=== PATIENT | female | born 1985 | race Caucasian/White ===

== ENCOUNTER 2022-02-06 07:41 | Day surgery (SDC) | payer BC ==
[2022-02-05 11:00] VITALS: BMI 32.6
[2022-02-06] MEDS ORDERED: EPINEPHrine 1 MG/ML AMP ONE (10:12)
[2022-02-06] MEDS ORDERED: Bupivacaine 0.25% HCL 30 ML VIAL ONE (10:12)
[2022-02-06] MEDS ORDERED: Midazolam HCl 2 mg/2 ml Vial ONE (10:29)
[2022-02-06] MEDS ORDERED: Lidocaine 2% 6 ML SYR ONE (10:29)
[2022-02-06] MEDS ORDERED: fentaNYL Citrate/PF 100 MCG/2 ML SYRINGE ONE (10:29)
[2022-02-06] MEDS ORDERED: cefOXitin 2 GM VIAL ONE (10:32)
[2022-02-06] MEDS ORDERED: PROPOFOL 200 MG/20 ML VIAL ONE (10:38)
[2022-02-06] MEDS ORDERED: Ondansetron PF 4 MG/2 ML Vial ONE (10:38)
[2022-02-06] MEDS ORDERED: Ketorolac Tromethamine 30 MG/ML VIAL ONE (10:38)
[2022-02-06] MEDS ORDERED: Dexamethasone 20 MG/5 ML VIAL ONE (10:38)
== END 2022-02-06 13:24 | disposition home or self-care (01) ==
LOC: SDC 07:41
PROVIDERS: ATTEND Surgery
PROC: 0DBQ7ZX Excision of Anus, Via Natural or Artificial Opening, Diagnostic (ICD-10-PCS; principal; 2022-02-06)
DX: K62.0 Anal polyp (principal); J45.909 Unspecified asthma, uncomplicated; Z79.899 Other long term (current) drug therapy; Z88.5 Allergy status to narcotic agent
CPT/HCPCS: 88305; J0171; J0694; J1100; J1885; J2250; J2405; J2704; S0020